=== PATIENT | female | born 1970 | race Two or more races ===

== ENCOUNTER 2024-12-05 08:54 | Day surgery (SDC) | payer MEDICAID ==
[2024-12-04 09:24] LABS: Urine Bacteria FEW /hpf (None Seen); Urine Blood TRACE /uL (Negative); Urine Clarity Turbid (Clear); Urine Color Light-Yellow (Yellow); Urine Protein, UAD TRACE (Negative); Urine Specific Gravity 1.019 (1.001-1.035); Urine Squamous Epithelial Cell FEW /hpf (<5); Urine Urobilinogen Normal (Negative); Urine WBC 52 /HPF (0-5); Urine pH 6.5 (5.0-9.0)
[~2024-12-05] VITALS: Ht 160 cm; Wt 106.6 kg
[~2024-12-05 08:54] MED LIST: ATOR20TA50 PO; CETI-195 PO; FLUT50SP; LISI20TA56 PO; METF-371 PO
[2024-12-05] MEDS ORDERED: MIDAZOLAM HCL 2MG/2ML 2ml VIAL (1mg/ml) ONE (09:50)
[2024-12-05] MEDS ORDERED: PROPOFOL 10 MG/ML 20 ML IV ONE (09:50)
[2024-12-05 10:15] VITALS: PULSE 85; RESP 15; O2SAT 96
--- NOTE | 2024-12-05 10:15 | DVHHP2 ---
GI H&P Pre-Op Assessment Date: 12/05/24 Chief complaint: colon cancer surveillance HPI: per clinic note Past medical history: per clinic note Past surgical history: per clinic note Family history: per clinic note Physical exam: General: NAD, AAOX3 HEENT: PERRL, no scleral icterus, normal hearing, gums without lesions or bleeding, oropharynx clear without erythema or exudate. Neck: Supple without enlargement of the thyroid, or lymphadenopathy. Chest: Normal size and shape, no tenderness, lung dumont clear to auscultation and percussion, nonlabored breathing. Heart: RRR, no murmur Abdomen: non-distended, no tenderness to palpation, +BS, no hepatosplenomegaly Extremities: no edema Neurological: CN II-XII intact, sensation intact in all extremities, 5+ strength in all extremities Skin: No rashes, No jaundice Assessment: - colon cancer surveillance Plan: - Colonoscopy - Risks (bleeding, infection, perforation, reaction to sedation medications and cardiopulmonary arrest) and benefit of the procedure were explained to patient. Patient agrees to undergo the procedure. SRIKANTH BROOKE MD Dec 05, 2024 10:15
--- NOTE | 2024-12-05 10:19 | DVHOP2 ---
Operative Report DATE OF OPERATION: 12/05/24 PROCEDURE: Colonoscopy. PREOPERATIVE INDICATION: The patient is a 53 -year-old female with history of colon cancer undergoing colonoscopy for colon cancer surveillance POSTOPERATIVE DIAGNOSES: 1. 7 mm rectal polyp was removed with hot snare and retrieved. 2. Diverticulosis in left colon. 3. Internal hemorrhoids. PROCEDURE PERFORMED BY: Kt Orellana M.D. SCOPE: Olympus videocolonoscope. ASA CLASS: 3 PREOPERATIVE MEDICATIONS: MAC with Dr Best PROCEDURE IN DETAIL: After obtaining an informed consent, the patient was placed on left lateral decubitus position. She was then sedated with the above medications. A rectal examination was performed that was normal. The c olonoscope was then passed through the anus into the rectosigmoid and through the descending, transverse, and ascending colon up to the cecum with visualization of the appendiceal orifice, base of the cecum and the ileocecal valve. A 7 mm rectal polyp was removed with hot snare and retrieved. There was diverticulosis in left colon. There were internal hemorrhoids. The colonoscope w as then withdrawn. The patient tolerated the procedure well without difficulty. WITHDRAWAL TIME: 8 minutes QUALITY OF THE PREP: [place] Bowel Prep score: 7 COMPLICATIONS : None SPECIMENS: Colon polyp DISPOSITION: D/C to home PLAN: 1. Repeat colonoscopy base on biopsy result KT ORELLANA MD Dec 05, 2024 10:19
--- NOTE | 2024-12-05 10:20 | DVHDS2 ---
Physician Discharge Progress N Final Diagnosis: Colon polyp, diverticulosis, internal hemorrhoids Operations or Procedures: Operations or Procedures Colonoscopy with hot snare polypectomy. Condition on Discharge: Good Disposition: Home Discharge Instructions: Diet: Regular Activity: No Restrictions, As Tolerated Medications: Resume with previous home medications. Follow Up Care: Discharge Statement: "Patient was advised to return to the ER or call 911 if any headaches, dizziness, shortness of breath, chest pain, abdominal pain, bleeding, fevers, or worsening of medical condition. Patient was counseled about treatment plan, medications, possible side effects, patientverbalized understanding. All questions were answered to the best of my ability. This discharge took greater then 30 minutes in planning, reviewing documentation, counseling the patient, and discussing with other team members." SRIKANTH BROOKE MD Dec 05, 2024 10:20
[2024-12-05] MEDS ORDERED: ONDANSETRON HCL 4 MG/2 ML VIAL IV ONE (10:30)
[2024-12-05] MEDS ORDERED: HYDROmorphone HCL 2 MG/ML VL/or syr IV PRN (10:30)
[2024-12-05 10:50] VITALS: BP 130/80; PULSE 86; RESP 16; O2SAT 97
== END 2024-12-05 10:57 | disposition home or self-care (01) ==
LOC: GI 08:54
PROVIDERS: ATTEND Internal Medicine Gastroenterology
DX: Z08 Encounter for follow-up examination after completed treatment for malignant neoplasm (principal); D12.8 Benign neoplasm of rectum; K57.30 Diverticulosis of large intestine without perforation or abscess without bleeding; K64.8 Other hemorrhoids; I10 Essential (primary) hypertension; E11.9 Type 2 diabetes mellitus without complications; E78.00 Pure hypercholesterolemia, unspecified; J45.909 Unspecified asthma, uncomplicated; F31.9 Bipolar disorder, unspecified; F17.210 Nicotine dependence, cigarettes, uncomplicated; E66.9 Obesity, unspecified; Z68.41 Body mass index [BMI] 40.0-44.9, adult; Z79.84 Long term (current) use of oral hypoglycemic drugs; Z79.899 Other long term (current) drug therapy; Z85.038 Personal history of other malignant neoplasm of large intestine; Z86.0100 Personal history of colon polyps, unspecified; Z98.42 Cataract extraction status, left eye; Z98.41 Cataract extraction status, right eye; Z98.891 History of uterine scar from previous surgery; Z90.49 Acquired absence of other specified parts of digestive tract; Z88.6 Allergy status to analgesic agent
CPT/HCPCS: 45385; 81001; 82962; 88305; J2250; J2704; J7030